=== PATIENT | female | born 1935 | race Caucasian/White ===

== ENCOUNTER 2016-06-09 09:24 | Inpatient (IN) | payer OTHER ==
[~2016-06-09] VITALS: Ht 149.9 cm; Wt 61.2 kg
[~2016-06-09 09:24] MED LIST: ALBUTEROL0.09 MG/A1 INH; ALPH-E-MIXED-4400 IU PO; ASPIR 8181 MG PO; CALTRATE 600 +1 TAB PO; FLAX OIL1000 MG PO; LINSEED OIL 1 ML1 ML PO; NORVASC 5MG TAB5 MG PO; OMEGA-3 1450725 MG PO; PREDNISONE20 M1 PO; PREPARATION H TOP; SYMBICORT 160/41 PUF INH; SYMBICORT 80/4.1 PUF INH; VITAMIN C500 M3 PO; ZANTAC 150MG150 MG PO; ZITHROMAX250 M2 PO
--- NOTE | 2016-06-09 09:41 | NUR ---
PT HAD EKG AND BLOOD WORK IN [place] BY [facility] NORM THACKER CURRENTLY EVALUATING PATIENT IN [place] AND THEN PT WILL MOVE TO [facility] RM 1.
--- NOTE | 2016-06-09 09:43 | ED CARDIAC/CP/PALPITATIONS ---
History of Present Illness General Chief Complaint: General Adult Stated Complaint: SOB,CHEST PAIN Source: patient, family, old records Exam Limitations: no limitations Vital Signs & Intake/Output Vital Signs & Intake/Output Vital Signs Date Time Temp Pulse Resp B/P Pulse O2 O2 Flow FiO2 Ox Delivery Rate 06/09 1511 98.4 79 16 159/76 100 Room Air 06/09 1506 98.4 85 16 159/76 100 Room Air 06/09 1408 70 170/82 03/ 1251 70 16 170/82 99 Room Air 06/09 1114 96.0 76 20 178/78 96 Room Air 06/09 1007 Room Air Room Air 06/09 1000 96.2 69 20 166/84 94 Room Air 06/09 0934 95.8 77 22 172/88 96 Room Air Allergies Coded Allergies: codeine (SOB 06/09/16) Uncoded Allergies: SEASONAL (UNKNOWN 10/08/15) Triage Note: SENT BY DR. MARTIN. C/O CHEST PAIN RADIATING TO BACK, WITH SOB X 10 DAYS. STATES SHE "PASSED OUT" PRIOR TO SXS, WHILE BEING TREATED FOR BRONCHITIS. PAIN IS WORSE ON INSPIRATION. Triage Nurses Notes Reviewed? yes Onset: Abrupt Duration: week(s): (FEW), intermittent Timing: recent history Quality/Severity: moderate, severe Location: central Radiation: no radiation Activities at Onset: none HPI: 80-year-old female comes into emergency room for further evaluation of multiple complaints. Patient reports that a couple weeks ago she was having these multiple episodes where she would pass out and lose consciousness completely. Patient reports that most of the time she would be exerting herself and would completely black out and wake up on the floor. Patient reports that she was feeling sick with a cough intermittently with some mucus production in the afternoons. Patient saw her primary care doctor who said that she had bronchitis and put her on prednisone. Patient reports that she does feel slightly better but has this chest pressure that won't go away. Denies any shortness of breath fever chills vomiting. The chest pressure has been there for about a week. Nothing seems to make it better or worse. Patient has not had any syncopal episodes in the past week. Denies any prior cardiac history. (KEDAR BAGLEY) Reconcile Medications Acetaminophen (Tylenol Extra Strength) 500 MG TABLET 2 TAB PO PRN PAIN ( Reported) Albuterol Sulfate (Proair Hfa) 90 MCG HFA.AER.AD 1-2 PUF INH Q4H PRN ASTHMA ( Reported) Amlodipine Besylate 5 MG TABLET 1 TAB PO QAM BP (Reported) Budesonide/Formoterol Fumarate (Symbicort 160-4.5 Mcg Inhaler) 160 MCG-4.5 MCG/ ACTUATION HFA.AER.AD 1 PUF INH BID ASTHMA (Reported) Calcium Carbonate/Vitamin D3 (Caltrate 600 + D Tablet) 600 MG-800 TABLET 1 TAB PO DAILY SUPPLEMENT (Reported) Ranitidine (Ranitidine HCl) 150 MG TABLET 1 TAB PO QPM HEARTBURN (Reported) Vitamin E Mixed (Vitamin E) 100 UNIT TABLET 1,000 UNITS PO DAILY SUPPLEMENT ( Reported) (SANDY BOYLE,HEIKE) Past History Travel History Traveled to [place] past 21 day No Medical History Any Pertinent Medical History? see below for history Neurological: migraine, SUBARACHNOID HEMORRHAGE EENT: cataracts, macular degeneration Cardiovascular: hypertension, hyperlipidemia Respiratory: asthma, bronchitis Gastrointestinal: diverticulitis, GERD, external HEMORRHOIDS per patient report. Hepatic: NONE Renal: NONE Musculoskeletal: osteoarthritis, L TORN MENISCUS Psychiatric: NONE Endocrine: NONE Blood Disorders: NONE Cancer(s): NONE VP HUMAN RESOURCES/Reproductive: uterine FIBROID and L BREAST CYSTS History of MRSA: No History of VRE: No History of CDIFF: No Surgical History Surgical History: appendectomy, tubal ligation, BREAST RECONSTRUCTIVE SX L MENISCUS REPAIR Psychosocial History Who do you live with Spouse Services at Home None What is your primary language Mongolian Tobacco Use: Quit >30 days ago ETOH Use: denies use Family History Family History, If Any: Relation not specified for: *No pertinent family history Hx Contributory? No (KEDAR BAGLEY) Review of Systems Review of Systems Constitutional: Reports: no symptoms. EENTM: Reports: no symptoms. Respiratory: Reports: see HPI. Cardiovascular: Reports: see HPI. GI: Reports: no symptoms. Genitourinary: Reports: no symptoms. Musculoskeletal: Reports: no symptoms. Skin: Reports: no symptoms. Neurological/Psychological: Reports: no symptoms. Hematologic/Endocrine: Reports: no symptoms. Immunologic/Allergic: Reports: no symptoms. All Other Systems: Reviewed and Negative (KEDAR BAGLEY) Physical Exam Physical Exam General Appearance: well developed/nourished, no apparent distress, alert Head: atraumatic, normal appearance Eyes: Bilateral: normal appearance, EOMI. Ears, Nose, Throat: normal pharynx, normal ENT inspection, hearing grossly normal Neck: normal inspection, full range of motion Respiratory: normal breath sounds, no respiratory distress Cardiovascular: regular rate/rhythm Back: normal inspection Extremities: normal inspection, normal range of motion, no edema Neurologic/Psych: awake, alert, oriented x 3, normal gait, normal mood/affect Skin: intact, normal color Core Measures ACS in differential dx? No Severe Sepsis Present: No Septic Shock Present: No (KEDAR BAGLEY) Progress Differential Diagnosis: AMI, aortic dissection, cholecystitis, costochondritis, hyperkalemia, hyperthyroid, hyperventilation, intracranial hemorrhage, musculoskeletal pain, pancreatitis, pericarditis, pneumonia, pneumothorax, pulmonary embolism, PUD/GERD, PVCs/PACs, rib fracture, sepsis, unstable angina, V-fib/V-Tach Plan of Care: Orders Procedure Date/time Status CBC WITHOUT DIFFERENTIAL 06/10 0600 Active BASIC ELECTROLYTES PLUS BUN&CR 06/10 0600 Active Heart Healthy Diet 06/09 L Complete Heart Healthy Diet 06/09 D Active TROPONIN LEVEL 06/09 2100 Active EKG 06/09 2100 Active TROPONIN LEVEL 06/09 1500 Complete EKG 06/09 1500 Active PHYSICIAN CONSULT 06/09 1433 Active RAPID VIRAL INFLUENZA A 06/09 1427 Complete LOWER RESPIRATORY CULTURE 06/09 1426 Active TRC EVALUATION (GEN) 06/09 1414 Active Code Status 06/09 1335 Active Pathway - chart 06/09 1301 Active House Staff 06/[address] in observation 06/09 1231 Active Vital Signs 06/09 1231 Active Code Status 06/09 1231 Complete Patient Data 06/09 1229 Active Intake & Output 06/09 1137 Active Telemetry/Collaborating Supervising Physician 06/09 0943 Active THYROID STIMULATING HORMONE 06/09 0940 Complete TROPONIN LEVEL 06/09 0936 Complete COMPREHENSIVE METABOLIC PANEL 06/09 0936 Complete CBC WITHOUT DIFFERENTIAL 06/09 0936 Complete EKG 06/09 0926 Active Lab Add-on Test 06/09 UNK Active VTE Mechanical Prophylaxis 06/09 UNK Active Vital Signs 06/09 UNK Active MISTAKE 06/09 UNK Active ECHOCARDIOGRAM 06/09 UNK Active Current Medications Sig/Ani Start time Last Medication Dose Stop Time Status Admin Vitamin E 100 IU DAILY 06/09 1331 AC (Vitamin E) Budesonide/ 1 PUF BID 06/09 1330 AC Formoterol Fumarate (Symbicort) Acetaminophen 650 MG Q6 PRN 06/09 1300 AC (Tylenol) Acetaminophen 1,000 MG Q6P PRN 06/09 1300 AC (Ofirmev) Laboratory Tests 06/09/16 1505: Troponin I < 0.01 06/09/16 1301: Troponin I Cancelled 06/09/16 0940: Anion Gap 6, Estimated GFR > 60, BUN/Creatinine Ratio 25.6 H, Glucose 98, Calcium 10.1, Total Bilirubin 0.6, AST 18, ALT 22, Alkaline Phosphatase 112, Troponin I < 0.01, Total Protein 6.5, Albumin 3.6, Globulin 2.9, Albumin/ Globulin Ratio 1.2, TSH 1.060, CBC w Diff NO MAN DIFF REQ, RBC 4.15 L, MCV 92.2 , MCH 31.3 H, RDW 14.6 H, MPV 7.2 L, Gran % 65.5, Lymphocytes % 23.1, Monocytes % 9.9 H, Eosinophils % 1.3, Basophils % 0.2, Absolute Granulocytes 4.5, Absolute Lymphocytes 1.6, Absolute Monocytes 0.7 H, Absolute Eosinophils 0.1, Absolute Basophils 0, PUBS MCHC 34.0 Microbiology 06/09 1445 NASOPHARYN: Influenza Virus A & B Rapid Smear - COMP 06/09 142 LOWER RESP: Respiratory Culture - COLB 06/09 1425 LOWER RESP: Gram Stain - COLB Diagnostic Imaging: Viewed by Me: Radiology Read. Discussed w/RAD: Radiology Read. Radiology Impression: SERVICE DATE: 06/09/16 EXAM TYPE: RAD - XRY-CHEST XRAY, PA AND LATERAL EXAMINATION: XR CHEST CLINICAL INFORMATION: Pain. Rule out trauma. COMPARISON: Chest radiograph dated 11/07/2015. Rib radiographs dated . TECHNIQUE: 2 views of the chest were obtained. FINDINGS: The cardiac silhouette is normal in size and configuration. There is uncoiling of the thoracic aorta. There is atherosclerotic disease. The lungs are clear. No pneumothorax or pleural effusion. Exaggerated kyphotic curvature. Degenerative changes of the thoracic spine. No displaced rib fracture. Degenerative changes of the shoulders. IMPRESSION: No pneumonia, pneumothorax or pleural effusion. No displaced rib fracture. DICTATED BY: MILES UMANZOR MD DATE/TIME DICTATED:1038 Initial ED EKG: normal intervals, normal p-waves, normal sinus rhythm, rate (77) , nonspecific ST T wave chg (KEDAR BAGLEY) Departure Departure Disposition: STILL A PATIENT Condition: Stable Clinical Impression Primary Impression: Syncope Secondary Impressions: Chest pain Referrals: MARIO BOYLE,GWEN Sommers (PCP/Family) Departure Forms: Customer Survey General Discharge Information Observation Note Spoke With: RUSTY REGAN MD Physician Advisor Notified: MUSA BOYLE,ELIDA [facility] Patient In: Non-ED OBS Care Area Rationale for Observation: My rational for observation is as follows . Patient will require cardiac telemetry. Serial EKGs. Serial troponins. Echocardiogram. Possibly stress test. Cardiac consultation. CONSULT plavic. (KEDAR BAGLEY) PA/COPYRIGHT MANAGER Co-Sign Statement Statement: ED Attending supervision documentation- [X] I saw and evaluated the patient. I have also reviewed all the pertinent lab results and diagnostic results. I agree with the findings and the plan of care as documented in the PA's/COPYRIGHT MANAGER's documentation. [X] I have reviewed the ED Record and agree with the PA's/COPYRIGHT MANAGER's documentation. [] Additions or exceptions (if any) to the PAs/COPYRIGHT MANAGER's note and plan are summarized below: [] (SANDY BOYLE,HEIKE) Critical Care Note Critical Care Note Critical Care Time: non-applicable (KEDAR BAGLEY)
[2016-06-09 09:48] LABS: ABSOLUTE BASOPHIL COUNT 0 /CUMM (0.0-0.2); ABSOLUTE EOSINOPHIL COUNT 0.1 /CUMM (0.0-0.7); ABSOLUTE GRANULOCYTE CT 4.5 /CUMM (1.4-6.5); ABSOLUTE LYMPH COUNT 1.6 /CUMM (1.2-3.4); ABSOLUTE MONOCYTE COUNT 0.7 /CUMM (0.10-0.60); BASOPHIL % 0.2 % (0.0-2.0); EOSINOPHIL % 1.3 % (0-5); GRANULOCYTE % 65.5 % (42.2-75.2); HEMATOCRIT 38.3 % (37-47); MEAN CORPUSCULAR HGB 31.3 PG (27.0-31.0); MEAN CORPUSCULAR VOLUME 92.2 FL (81.0-99.0); MEAN PLATELET VOLUME 7.2 FL (7.4-10.4); PLATELET COUNT 272 /CUMM (130-400); RBC DISTRIBUTION WIDTH 14.6 % (11.5-14.5); RED BLOOD CELL CT 4.15 /CUMM (4.20-5.40); WHITE BLOOD CELL COUNT 6.9 /CUMM (4.8-10.8)
--- NOTE | 2016-06-09 10:03 | NUR ---
PT STATES IT STARTED 2 WEEKS AGO WITH PRODUCTIVE COUGH (ONLY IN THE EVENINGS) WITH YELLOW PHLEGM AND HAVING MULTIPLE SYNCOPAL EPISODES IN THE SAME NIGHT. STATES SHE THINKS SHE INJURED HERSELF DURING THE FALLS SHE HAS HAD CHEST PAIN SINCE THEN WHICH HAS BEEN WORSE IN THE LAST WEEK AND HAS CONTINUED TO WORSEN SINCE. WAS DIAGNOSED WITH BRONCHITIS 05/30. COMPLETED ABX WEDNESDAY AND PREDNISONE WEDNESDAY. NOW FEELS WORSENING.
--- NOTE | 2016-06-09 10:05 | NUR ---
TAKEN TO XRAY AT THIS TIME.
--- NOTE | 2016-06-09 10:45 | RADIOLOGY REPORT ---
EXAMINATION: XR CHEST CLINICAL INFORMATION: Pain. Rule out trauma. COMPARISON: Chest radiograph dated 11/07/2015. Rib radiographs dated 04/18/2016. TECHNIQUE: 2 views of the chest were obtained. FINDINGS: The cardiac silhouette is normal in size and configuration. There is uncoiling of the thoracic aorta. There is atherosclerotic disease. The lungs are clear. No pneumothorax or pleural effusion. Exaggerated kyphotic curvature. Degenerative changes of the thoracic spine. No displaced rib fracture. Degenerative changes of the shoulders. IMPRESSION: No pneumonia, pneumothorax or pleural effusion. No displaced rib fracture.
--- NOTE | 2016-06-09 11:58 | NUR ---
DR DELGADO AT BEDSIDE TO DISCUSS PLAN
[2016-06-09] MEDS ORDERED: SYMBICORT 16010.2 GM INH (12:31)
[2016-06-09] MEDS ORDERED: RANITIDINE HCL150 MG PO (12:31)
[2016-06-09] MEDS ORDERED: AMLODIPINE BESYL5 M1 PO (12:32)
[2016-06-09] MEDS ORDERED: PROAIR HFA8.5 GM INH (12:32)
[2016-06-09] MEDS ORDERED: VITAMIN E100 UNI2 PO (12:33)
[2016-06-09] MEDS ORDERED: TYLENOL EXTRA500 M2 PO (12:33)
[2016-06-09] MEDS ORDERED: CALTRATE 600 +1 EACH PO (12:34)
--- NOTE | 2016-06-09 12:35 | History & Physical ---
TULIO DE LA ROSA 06/09/16 1234: General Information and HPI MD Statement: I have seen and personally examined JOEL RUTLEDGE and documented this H&P. The patient is a 80 year old F who presented with a patient stated chief complaint of [syncope]. Source of Information: patient, family Exam Limitations: no limitations History of Present Illness: 80-year-old female with a past medical history of subarachnoid hemorrhage, hypertension, hyperlipidemia, aspirin, GERD, diverticulitis, osteoarthritis presented to the ED with chief complaint of chest pain and shortness of breath as well as episodes of syncope that happened a week and a half ago. According to the patient she was in her usual state of health up until 2 weeks when she developed upper respiratory tract infection. States that she was bringing up any coughing a lot especially during the afternoon as well as, mild. About 1-1/2 week ago, she woke up at around 1 AM to use the restroom, felt dizzy and passed out. Her stated her to the bed. She said a few minutes later she again had to use the restroom and at that time similar event occurred while she fell down on the floor. She denies any chest pain, palpitations, any prodromal symptoms prior to the event. She denies hitting her head but does admit to losing her consciousness and doesn't really recall the events. There is no history of seizure like activity. She does however state that she was barely eating and drinking prior to when these episodes occur. She saw her allergy doctor the following day and was started on Z-Prosper as well as prednisone for bronchitis. Of note her chest pain does alleviate with Tyelnol, and when she lies flat. No hsitory of PND, orthopnea. Allergies/Medications Allergies: Coded Allergies: codeine (SOB 06/09/16) Uncoded Allergies: SEASONAL (UNKNOWN 10/08/15) Home Med list Acetaminophen (Tylenol Extra Strength) 500 MG TABLET 2 TAB PO PRN PAIN ( Reported) Albuterol Sulfate (Proair Hfa) 90 MCG HFA.AER.AD 1-2 PUF INH Q4H PRN ASTHMA ( Reported) Amlodipine Besylate 5 MG TABLET 1 TAB PO QAM BP (Reported) Budesonide/Formoterol Fumarate (Symbicort 160-4.5 Mcg Inhaler) 160 MCG-4.5 MCG/ ACTUATION HFA.AER.AD 1 PUF INH BID ASTHMA (Reported) Calcium Carbonate/Vitamin D3 (Caltrate 600 + D Tablet) 600 MG-800 TABLET 1 TAB PO DAILY SUPPLEMENT (Reported) Ranitidine (Ranitidine HCl) 150 MG TABLET 1 TAB PO QPM HEARTBURN (Reported) Vitamin E Mixed (Vitamin E) 100 UNIT TABLET 1,000 UNITS PO DAILY SUPPLEMENT ( Reported) Compliance With Home Meds: GOOD Past History Travel History Traveled to [place] past 21 day No Medical History Neurological: migraine, SUBARACHNOID HEMORRHAGE EENT: cataracts, macular degeneration Cardiovascular: hypertension, hyperlipidemia Respiratory: asthma, bronchitis Gastrointestinal: diverticulitis, GERD, external HEMORRHOIDS per patient report. Hepatic: NONE Renal: NONE Musculoskeletal: osteoarthritis, L TORN MENISCUS Psychiatric: NONE Endocrine: NONE Blood Disorders: NONE Cancer(s): NONE NET LEAD DEVELOPER/Reproductive: uterine FIBROID and L BREAST CYSTS History of MRSA: No History of VRE: No History of CDIFF: No Surgical History Surgical History: appendectomy, tubal ligation, BREAST RECONSTRUCTIVE SX L MENISCUS REPAIR Past Family/Social History Family History Relations & Conditions if any MOTHER Early CAD FH: breast cancer FATHER FH: CAD (coronary artery disease) Psychosocial History Who Do You Live With? spouse Services at Home: None Primary Language: Luxembourgish Smoking Status: Former Smoker (quit 30 years) ETOH Use: denies use Illicit Drug Use: denies illicit drug use Functional Ability ADLs Independent: dressing, eating, toileting, bathing. Ambulation: independent IADLs Independent: shopping, housework, finances, food prep, telephone, transportation , medication admin. Review of Systems Review of Systems Constitutional: Denies: chills, diaphoresis, fever, weakness. EENTM: Denies: visual changes. Cardiovascular: Reports: chest pain, syncope. Denies: orthopena, palpitations, peripheral edema. Respiratory: Reports: cough, short of breath, sputum production. Denies: hemoptysis, orthopnea, wheezing. GI: Reports: abdominal pain. Denies: constipation, diarrhea, nausea, vomiting. Genitourinary: Reports: no symptoms. Musculoskeletal: Reports: no symptoms. Neurological/Psychological: Denies: headache, numbness, tingling, tremors, tonic-clonic seizures. Exam & Diagnostic Data Last 24 Hrs of Vital Signs/I&O Vital Signs Date Time Temp Pulse Resp B/P Pulse O2 O2 Flow FiO2 Ox Delivery Rate 06/09 1408 70 170/82 06/09 1251 70 16 170/82 99 Room Air 06/09 1114 96.0 76 20 178/78 96 Room Air 06/09 1007 Room Air Room Air 06/09 1000 96.2 69 20 166/84 94 Room Air 06/09 0934 95.8 77 22 172/88 96 Room Air Intake & Output 06/09 1600 06/09 0800 06/09 0000 Intake Total Output Total Balance Patient 135 lb Weight Physical Exam General Appearance Alert, Oriented X3, Cooperative, No Acute Distress HEENT Atraumatic, PERRLA, EOMI, DRY MUCOUS MEMBRANES Neck Supple, No JVD, No thryomegaly, +2 Carotid Pulse wo Bruit, No LAD Cardiovascular Regular Rate, Normal S1, Normal S2, GRADE III/ holosystolic murmer heard best at RSB Lungs Clear to Auscultation, Normal Air Movement Abdomen Normal Bowel Sounds, Soft, No Tenderness Neurological Normal Speech, Strength at 5/5 X4 Ext, Normal Tone, Sensation Intact, Cranial Nerves 3-12 NL, Reflexes 2+ Extremities No Clubbing, No Cyanosis, Normal Pulses, No Tenderness/Swelling, 1+ b/l lower extremity edema Last 24 Hrs of Labs/Rafal: Laboratory Tests 06/09/16 1301: Troponin I Cancelled 06/09/16 0940: Anion Gap 6, Estimated GFR > 60, BUN/Creatinine Ratio 25.6 H, Glucose 98, Calcium 10.1, Total Bilirubin 0.6, AST 18, ALT 22, Alkaline Phosphatase 112, Troponin I < 0.01, Total Protein 6.5, Albumin 3.6, Globulin 2.9, Albumin/ Globulin Ratio 1.2, TSH 1.060, CBC w Diff NO MAN DIFF REQ, RBC 4.15 L, MCV 92.2 , MCH 31.3 H, RDW 14.6 H, MPV 7.2 L, Gran % 65.5, Lymphocytes % 23.1, Monocytes % 9.9 H, Eosinophils % 1.3, Basophils % 0.2, Absolute Granulocytes 4.5, Absolute Lymphocytes 1.6, Absolute Monocytes 0.7 H, Absolute Eosinophils 0.1, Absolute Basophils 0, PUBS MCHC 34.0 Microbiology 06/09 1427 NASOPHARYN: Influenza Virus A & B Rapid Smear - ORD 06/09 1426 LOWER RESP: Respiratory Culture - ORD 06/09 1426 LOWER RESP: Gram Stain - ORD Diagnostic Data EKG Results normal sinus rhythm, questionable left axis deviation, poor R-wave progression and a heart rate of 77. CXR Results Chest x-ray revealed no evidence of pneumonia, pneumothorax or pleural effusion. Assessment/Plan Assessment: 80-year-old female with a past medical history of subarachnoid hemorrhage, hypertension, hyperlipidemia, aspirin, GERD, diverticulitis, osteoarthritis presented to the ED with chief complaint of chest pain and shortness of breath as well as episodes of syncope that happened a week and a half ago. According to the patient she was in her usual state of health up until 2 weeks when she developed upper respiratory tract infection. States that she was bringing up any coughing a lot especially during the afternoon as well as, mild. About 1-1/2 week ago, she woke up at around 1 AM to use the restroom, felt dizzy and passed out. Her stated her to the bed. She said a few minutes later she again had to use the restroom and at that time similar event occurred while she fell down on the floor. She denies any chest pain, palpitations, any prodromal symptoms prior to the event. She denies hitting her head but does admit to losing her consciousness and doesn't really recall the events. There is no history of seizure like activity. She does however state that she was barely eating and drinking prior to when these episodes occur. She saw her allergy doctor the following day and was started on Z-Prosper as well as prednisone for bronchitis. Up until about a week ago she's also started to experience chest pain that was worse every time she take a deep breath, is intermittent. She grades the pain as an 8 out of 10 minutes at it worse and is alleviated by taking Tylenol. She also admits to a mild shortness of breath happening for almost 10 days now. Vitals at the time of admission blood pressure is 178/78, respiratory rate 29, pulse 76, afebrile saturating 96% on room air. Physical exam revealed that she is alert and oriented 3, and in no acute distress sitting comfortably in bed. HEENT revealed PERRLA, dry mucous membranes. Examination of the neck did not reveal any elevated JVD, no cervical lymphadenopathy. Chest was clear to auscultation bilaterally. Cardiovascular exam reveals normal S1, S2, grade 3 x 6 holosystolic murmur heard best at the right sternal border. Abdominal exam was unremarkable with normal bowel sounds in all 4 quadrants, abdomen soft, nontender, nondistended. Examination of the lower extremities revealed 1+ edema bilaterally. Labs pertinent for an H&H of 13.0/38.3, MCV of 92.2 and a platelet count of 272, 000. Serum chemistries revealed a sodium of 139, potassium of 4.1, bicarbonate 31, anion gap 6, BUN 23 and a creatinine of 0.9. LFTs are unremarkable with an AST/ALT of 18/22, total bili of 0.6 and an alkaline phosphatase of 112. First set of troponin negative at less than 0.01. Last echocardiogram in our system is from 2007 which revealed normal left ventricular ejection fraction, mild mitral regurgitation, mild tricuspid regurgitation, trace pulmonic valvular regurgitation and trace to mild aortic regurgitation. Chest x-ray revealed no evidence of pneumonia, pneumothorax or pleural effusion. EKG revealed normal sinus rhythm, questionable left axis deviation, poor R-wave progression and a heart rate of 77. Assessment and plan Admit patient to telemetry for observation #Atypical chest pain Differentials at this point include pericarditis versus pleuritis versus ACS Troponin and EKG at 3 PM and 9 PM to rule out ACS Echocardiogram to further evaluate for any valvular lesions and or pericarditis Cardiology consult with Dr. Lomas Follow-up recommendations Check LRC, rapid influenza. #Syncope Most likely secondary to dehydration versus vasovagal versus secondary to cardiac arrhythmias versus aortic stenosis? unllikely Tej HERNANDEZ is 0 Monitor on telemetry for 24 hours to rule out any arrhythmias F/U Echo Check orthostatic vitals #Hypertension Continue on amlodipine 5 mg daily #GERD Continue on Protonix 40 mg daily Diet Heart healthy DVT prophylaxis Heparin 5000 international units 3 times a day subcutaneous CODE STATUS Full code As Ranked By This Provider Problem List: 1. Chest pain 2. Syncope Core Measures/Miscellaneous Acute Coronary Syndrome ACS Diagnosis: No Cerebrovascular Accident CVA/TIA Diagnosis: No Congestive Heart Failure CHF Diagnosis: No Venous Thromboembolism VTE Risk Factors: Age > 40 [facility] d/t: No contraindications No VTE Pharm Prophylaxis d/t: No contraindications VTE Diagnosis: No VTE Type: NONE VTE Confirmed by (Test): NONE Severe Sepsis Severe Sepsis Present: No Septic Shock Septic Shock Present: No Miscellaneous Documentation Attending Case Discussed With: RHIANNON BOYLE,JOSHUA Gan Primary Care Physician: GWEN MARTIN MD Patient sees these Specialists -Package Center Supervisor in [place] Level of Patient Care: Telemetry Consults Needed: Consulting Specialty: Cardiology Resident Review Statement Resident Statement: admitted by resident JOSHUA LOMAS MD 06/09/16 1447: Attending MD Review Statement Attending Statement Attending MD Statement: examined this patient, discuss w/resident/PA/SENIOR STORAGE ENGINEER, agreed w/resident/PA/SENIOR STORAGE ENGINEER, reviewed EMR data (avail), discussed with nursing, discussed with case mgmt, reviewed images Attending Assessment/Plan: 80-year-old female with past medical history of hyperreactive airway disease questionable asthma on a laba/steroid combination is here with syncope 2. There doesn't appear to be any obvious source of the syncope other than the fact that she has had poor by mouth intake, is weak and dehydrated. She does have a murmur as well. She's had this cough with yellow phlegm and has been treated with a Z-Prosper and prednisone as an outpatient. At this point will bring her into telemetry to watch for the syncope closely, get an echocardiogram and cardiology eval she is requesting Dr. Galen Thornton's group. Will gently hydrate her for a liter, continue her Norvasc. Continue her inhalers. Check influenza and check sputum Gram stain and culture. Chest x-ray is completely negative, she is not hypoxemic or tachycardic and will closely follow up.
--- NOTE | 2016-06-09 12:50 | NUR ---
IV ESTABLISHED. PT REQUESTING FOOD. ASSISTED BACK TO STRETCHER AND EDUCATED ON FALL PRECAUTIONS DUE TO RECENT HX OF MULTIPLE SYNCOPAL EPISODES. DENIES DIZZINESS AT THIS TIME. DENIES CP.
--- NOTE | 2016-06-09 12:56 | NUR ---
PT CHANGED AND CLOTHES PLACED IN BAGS. LEXI RED SLIPPERS FOR HIGH FALL RISK IDENTIFICATION APPLIED. HEART HEALTHY FOOD TRAY ORDERED. PT AND FAMILY INFORMED OF ADMISSION PROCESS
--- NOTE | 2016-06-09 14:09 | NUR ---
MEDICATED WITH PRILOSEC, NORVASC AND HEPARIN PER eMAR AND EDUCATED ON USES. FOOD TRAY PROVIDED AND INFORMED WAITING PERFORMED REGARDING PENDING BED ASSIGNMENT
--- NOTE | 2016-06-09 14:32 | Admission Certification ---
Admission Certification Certification Statement - As attending physician, I certify that at the time of - admission, based on clinical presentation, severity of - symptoms, need for further diagnostic testing and - therapeutic interventions, and risk of adverse outcomes - without in-hospital treatment, in my clinical assessment, - this patient requires an acute hospital stay for a minimum - of two nights or longer. I have also considered psychsocial - factors such as support system, advanced age, financial - issues, cognitive issues, and failed out-patient treatments, - past re-admission history, safety of patient, and lack of - compliance as applicable. Specific rationale supporting this admission is: Syncope with fall and dehydration
--- NOTE | 2016-06-09 14:55 | NUR ---
FLU SWAB OBTAINED AND SENT TO LAB. INFORMED OF NO ROOMS IN TELEMETRY AT THIS TIME AND PT WILL BE PROVIDED A HOSPITAL BED. ALSO INFORMED OF PLAN FOR REPEAT TROPONIN AND EKG AT THIS TIME. PHARMACY CALLED FOR MEDS
--- NOTE | 2016-06-09 15:09 | NUR ---
PT TOOK VIT E THIS AM WELL SYMBICORT, REQUESTING TO WAIT UNTIL BEDTIME DOSE. NS IVF GTT AT 75ML/HR PER ORDER. REPEAT TROPONIN AND EKG COMPLETED AT THIS TIME
[2016-06-09 15:11] VITALS: BP 159/76
--- NOTE | 2016-06-09 15:54 | NUR ---
DIETARY CALLED FOR DIFFERENT HEART HEALTHY TRAY AND A MENU FOR PT FUTURE ORDERS.
--- NOTE | 2016-06-09 16:49 | NUR ---
IV SITE APPEARS INFILTRATED WITH COOL SWELLING PROXIMAL TO AC WHERE CATH IS. DC'ED IMMEDIATELY AND ICE PACK APPLIED. NEW IV ESTABLISHED TO LH AND NS CONT. DINNER TRAY PROVIDED
--- NOTE | 2016-06-09 20:42 | NUR ---
Emergency Dept UC Admit Note: To be admitted to [facility] by DR JURADO with SYNCOPE as the diagnosis, to TELE/OBS location. Nursing Management Technician and admitting notified 06/09/16 at 1235 PT WILL GO TO ROOM 180-1
--- NOTE | 2016-06-09 20:43 | NUR ---
ROOM IS NOT READY YET
[2016-06-09 20:49] VITALS: BP 142/82
--- NOTE | 2016-06-09 21:05 | NUR ---
REPEAT TROP DRAWN AND SENT BY THIS MST.
--- NOTE | 2016-06-09 21:10 | NUR ---
REPORT GIVEN TO RECEIVING RN AND DISTRIBUTION CALLED. TELE RESIDENT PAGED AT X203 TO BE INFORMED THAT EKG AND TROPONIN COMPLETED. PT REMAINS NSR ON CM RATE 80'S. SLIGHT COUGH REMAINS, NOT EXPECTORATING ANY SPUTUM FOR ANALYSIS. VSS. INFORMED OF PLAN FOR TRANSPORT UPSTAIRS TO ROOM.
--- NOTE | 2016-06-09 21:29 | NUR ---
PT TRANSPORTED TO FLOOR
[2016-06-09 21:45] VITALS: BP 162/86
--- NOTE | 2016-06-10 01:05 | Event Note ---
Event Note Event Note: Rapid response was called around 12:30AM with subsequent code 3 called moments later. Upon arrival to the patient's room patient was seen to be lying flat in bed with her eyes open breathing at a normal pace appearing scared/confused. Collateral information obtained from nursing staff states that patient was sitting in her chair at bedside when she stated that she "didn't feel right". Blood pressure was reportedly assessed but cannot be auscultated. The chair was positioned next to the bed so that patient would be able to stand pivot and transfer with minimal effort in an attempt to place the patient in bed. Patient reportedly stood up and "turned blue" and collapsed. She was caught by the nurse present whom was able to place the patient in bed without injury. She was apparently seen to have agonal breaths/apnea with a weak and thready carotid pulse for which the rapid response/code 3 was immediately called. Patient was interviewed and she does not recall losing consciousness and otherwise states that she feels a little "funny". She appears dazed and confused but in no acute distress. She reports feeling dizzy/lightheaded but otherwise denies any blurred/double vision, chest pain, palpitations, shortness of breath, nausea, numbness/tingling, weakness. She did not sustain any musculoskeletal injuries or lose bowel/bladder control. She was not witnessed to have any seizure activity. Vital signs upon evaluation: Temp 96.7, HR 80, RR 16, BP 142/82, 95% on room air Physical exam -Gen: Well-developed, well-nourished elderly anxious woman appearing mildly confused but in no acute distress -HEENT: NCAT, PERRLA, EOMI, anicteric sclera, moist mucous membranes -Neck: Supple, no JVD, no carotid bruit -CVS: S1, S2 without murmurs gallops or rubs, regular rate and rhythm -Respiratory: Clear to auscultation bilaterally -GI: Soft, nontender, nondistended, bowel sounds present -Neuro: Awake and alert, oriented to person/place/time, cranial nerves intact diffusely, sensation intact, coordination intact, speech intact, strength 5/5 in all 4 extremities -Extremities: Normal pulses, no cyanosis/clubbing/edema EKG was unchanged. Complete blood count, serum chemistries, magnesium, and troponin drawn at this time were within normal limits. Given her admitting history of present illness of syncope with subjective/objective evaluation suggestive of a further syncopal events is possible that patient Suffered a recurrence of her underlying disease that is currently eating evaluated. Orthostats cannot be assessed as patient did not want to sit up/ stand for fear of another event. Patient was counseled regarding these findings and instructed to attempt to get some rest and to please let nursing/housestaff no if she develops any other symptoms. No further evaluations in regards to this event are pending that will require follow-up.
[2016-06-10 01:19] LABS: ABSOLUTE BASOPHIL COUNT 0 /CUMM (0.0-0.2); ABSOLUTE EOSINOPHIL COUNT 0.2 /CUMM (0.0-0.7); ABSOLUTE GRANULOCYTE CT 5.4 /CUMM (1.4-6.5); ABSOLUTE LYMPH COUNT 2.8 /CUMM (1.2-3.4); ABSOLUTE MONOCYTE COUNT 0.8 /CUMM (0.10-0.60); BASOPHIL % 0.4 % (0.0-2.0); EOSINOPHIL % 1.8 % (0-5); GRANULOCYTE % 58.6 % (42.2-75.2); HEMATOCRIT 36.9 % (37-47); MEAN CORPUSCULAR HGB 31.1 PG (27.0-31.0); MEAN CORPUSCULAR HGB CONC 33.8 G/DL (33.0-37.0); MEAN CORPUSCULAR VOLUME 92.1 FL (81.0-99.0); MEAN PLATELET VOLUME 7.6 FL (7.4-10.4); PLATELET COUNT 268 /CUMM (130-400); RBC DISTRIBUTION WIDTH 14.8 % (11.5-14.5); RED BLOOD CELL CT 4.01 /CUMM (4.20-5.40); WHITE BLOOD CELL COUNT 9.2 /CUMM (4.8-10.8)
--- NOTE | 2016-06-10 03:46 | NUR ---
NURSING NOTE, LATE ENTRY: 0020 PT CALLED THIS RN INTO ROOM FOR ASSISTANCE BACK TO BED FROM CHAIR. AT THIS TIME PT COMPLAINING OF "NOT FEELING WELL", UNABLE TO GIVE SPECIFIC SYMPTOMS. PT DID STATE THAT SHE FELT DIZZY. AT THIS TIME, BP WAS ATTEMEPTED BY THIS RN, DURING ATTEMPT TO OBTAIN BP PT BECAME UNRESPONSIVE. RAPID RESPONSE CALLED AT 0031. PT PLACED BACK INTO BED, PT WAS APENIC, FAINT CAROTID PULSE PALPATED BY THIS RN. PT WAS INCONTINENT OF URINE AT THIS TIME. UPON ARRIVAL OF RAPID RESPONSE TEAM PT AWOKE ON HER OWN AND WAS UNABLE TO RECALL ANYTHING AFTER STATING SHE DID NOT FEEL WELL. BP AT THIS TIME 132/68, HR 68, O2 SAT 85% ON RA, FINGER STICK GLUCOSE 98. PT PLACED ON 2LNC, O2 INCREASED TO 94%, EKG AND BLOOD WORK OBTAINED. AWAITING FURTHER ORDERS, WILL CONTINUE TO MONITOR.
[2016-06-10 08:08] VITALS: BP 150/78
--- NOTE | 2016-06-10 12:25 | Cons- Cardiology ---
General Information and HPI Consulting Request Date of Consult: 06/10/16 Requested By: JOSHUA JURADO MD Reason for Consult: Syncope Source of Information: patient, family, old records Exam Limitations: no limitations History of Present Illness: The patient is a 80-year-old woman with a past medical history of eye pretension , hyperlipidemia, gastroesophageal reflux disease and arachnoid hemorrhage. The patient presents with symptoms of chest discomfort as well as increasing dyspnea and episodes of syncope occurring over the past several weeks; however, have as well occurred in the past. The patient states she developed an upper respiratory tract infection approximately 2 weeks ago and has had an increasing cough frequency. Her first episode of syncope that had occurred recently was approximately one half weeks ago when she arose from bed due to the bathroom. There was a prodrome of lightheadedness with no concurrent palpitations nor chest discomfort. She collapsed to the floor and was assisted by her . There was no clear recall of the event, and she proceeded to the bathroom; however, had a second syncopal episode I'll emulating back to her bed. The patient states she had felt dehydrated at the time which have been similar to prior episodes of syncope that occurred with respiratory infections. She was initiated on treatment for bronchitis with azithromycin as well as prednisone. On the a.m. of 06/10/2016, the patient had been sitting in a chair when she felt the sudden onset of lightheadedness, syncopal to the sensation she felt while walking to the bathroom. There was no concurrent palpitations chest pains nor dyspnea. She was noted to have a syncopal episode by the staff nurse sitting her chair. A blood pressure could not be auscultated at that time nor was there a clear pulse felt. Telemetry demonstrated paroxysm of bradycardia with heart rates of mid 40s. No concurrent nausea was noted either. No seizure activity nor postictal state was noted. The patient has subsequently ruled out for myocardial infarction by troponin isoenzymes. Orthostatic blood pressures checked this a.m. were negative. Allergies/Medications Allergies: Coded Allergies: codeine (SOB 06/09/16) Uncoded Allergies: SEASONAL (UNKNOWN 10/08/15) Home Med List: Acetaminophen (Tylenol Extra Strength) 500 MG TABLET 2 TAB PO PRN PAIN ( Reported) Albuterol Sulfate (Proair Hfa) 90 MCG HFA.AER.AD 1-2 PUF INH Q4H PRN ASTHMA ( Reported) Amlodipine Besylate 5 MG TABLET 1 TAB PO QAM BP (Reported) Budesonide/Formoterol Fumarate (Symbicort 160-4.5 Mcg Inhaler) 160 MCG-4.5 MCG/ ACTUATION HFA.AER.AD 1 PUF INH BID ASTHMA (Reported) Calcium Carbonate/Vitamin D3 (Caltrate 600 + D Tablet) 600 MG-800 TABLET 1 TAB PO DAILY SUPPLEMENT (Reported) Ranitidine (Ranitidine HCl) 150 MG TABLET 1 TAB PO QPM HEARTBURN (Reported) Vitamin E Mixed (Vitamin E) 100 UNIT TABLET 1,000 UNITS PO DAILY SUPPLEMENT ( Reported) Current Medications: Current Medications Sig/Ani Start time Last Medication Dose Route Stop Time Status Admin Acetaminophen 650 MG Q6 PRN 06/09 1300 AC PO Acetaminophen 1,000 MG Q6P PRN 06/09 1300 AC IV Amlodipine Besylate 0 .STK-MED ONE 06/09 1359 DC PO Amlodipine Besylate 5 MG QAM 06/09 1330 AC 06/10 PO 1033 Budesonide/ 1 PUF BID 06/09 1330 AC 08 Formoterol Fumarate INH 1033 Heparin Sodium 5,000 UNIT Q8 06/09 1400 AC 06/10 (Porcine) SC 1034 Heparin Sodium 0 .STK-MED ONE 06/09 1358 DC (Porcine) .ROUTE Omeprazole 40 MG 1700 06/10 1700 AC PO Omeprazole 0 .STK-MED ONE 06/09 1359 DC PO Omeprazole 40 MG DAILY AC 06/09 1331 DC 06/09 PO 1408 Ondansetron HCl 4 MG ONCE ONE 06/10 0115 DC 06/10 IV 06/10 0116 0133 Sodium Chloride 1,000 ML Q13H 06/09 1430 DC 03/ IV 06/10 0329 1507 Vitamin E 100 IU DAILY 06/09 1331 AC 06/10 PO 1033 Review of Systems Review of Systems: The review of systems is negative for chest pains, palpitations nor lightheadedness, with the exception of syncope as above The remainder of the 14 point review of systems is noncontributory with the exception of above. Past History Travel History Traveled to [place] past 21 day No Medical History Blood Transfusion Hx: No Neurological: migraine, SUBARACHNOID HEMORRHAGE S/P FALL AND HEADSTRIKE EENT: cataracts, macular degeneration Cardiovascular: hypertension, hyperlipidemia Respiratory: asthma, bronchitis Gastrointestinal: diverticulitis, GERD, external HEMORRHOIDS per patient report. 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 Home Who Do You Live With? spouse Services at Home: None Primary Language: Wolof Smoking Status: Former Smoker (quit 30 years) ETOH Use: denies use Illicit Drug Use: denies illicit drug use Functional Ability ADLs Independent: dressing, eating, toileting, bathing. Ambulation: independent IADLs Independent: shopping, housework, finances, food prep, telephone, transportation , medication admin. Exam & Diagnostic Data Vital Signs and I&O Vital Signs Date Time Temp Pulse Resp B/P Pulse O2 O2 Flow FiO2 Ox Delivery Rate 06/10 1033 65 150/78 06/10 0808 98.3 65 20 150/78 97 Nasal 2.0L Cannula 06/10 0036 93 Nasal 2.0L Cannula 06/09 2145 98.5 92 20 162/86 98 Room Air / 2049 96.7 79 16 142/82 95 Room Air / 2048 96.7 80 16 142/82 95 Room Air / 1511 98.4 79 16 159/76 100 Room Air / 1506 98.4 85 16 159/76 100 Room Air / 1408 70 170/82 03/07 1251 70 16 170/82 99 Room Air Intake & Output 06/10 1600 06/10 0800 /08 0000 06/09 1600 06/09 0800 06/09 0000 Intake Total 900 850 Output Total 400 300 Balance 500 850 -300 Intake, IV 650 500 Intake, Oral 250 350 Number 0 0 Bowel Movements Output, Urine 400 300 Patient 135 lb Weight Physical Exam: General: Nontoxic, no apparent distress. HEENT: Sclera and conjunctiva within normal limits, without xanthelasmas. Neck: Carotids 2+ without bruits. Respiratory: Scattered rhonchi, air movement is good, without accessory respiratory muscle use. Heart: Regular rate and rhythm, 3/6 systolic murmur at left sternal border, 2/6 systolic crescendo decrescendo murmur at the right sternal border, without JVD. Abdomen: Soft, nontender, no masses, normoactive bowel sounds. Extremities: Without clubbing, cyanosis, without edema. Neuro: Nonfocal exam, strength, 5 out of 5 Skin: Within normal limits without lesions. Psych: Mood and affect: Normal Labs/Rafal Results: Laboratory Tests 06/10 06/10 06/10 06/09 0620 0045 0045 2053 Chemistry Sodium (137 - 145 mmol/L) 140 139 Cancelled Potassium (3.5 - 5.1 mmol/L) 4.9 3.7 Cancelled Chloride (98 - 107 mmol/L) 106 104 Cancelled Carbon Dioxide (22 - 30 mmol/L) 28 27 Cancelled Anion Gap (5 - 16) 6 8 Cancelled BUN (7 - 17 mg/dL) 16 17 Cancelled Creatinine (0.5 - 1.0 mg/dL) 0.9 1.0 Cancelled Estimated GFR (>60 ml/min) > 60 54 L BUN/Creatinine Ratio (7 - 25 %) 17.8 17.0 Cancelled Magnesium (1.6 - 2.3 mg/dL) 1.9 Troponin I (< 0.11 ng/ml) < 0.01 < 0.01 < 0.01 Hematology CBC w Diff NO MAN DIFF REQ WBC (4.8 - 10.8 /CUMM) 9.2 RBC (4.20 - 5.40 /CUMM) 4.01 L Hgb (12.0 - 16.0 G/DL) 12.5 Hct (37 - 47 %) 36.9 L MCV (81.0 - 99.0 FL) 92.1 MCH (27.0 - 31.0 PG) 31.1 H RDW (11.5 - 14.5 %) 14.8 H Plt Count (130 - 400 /CUMM) 268 MPV (7.4 - 10.4 FL) 7.6 Gran % (42.2 - 75.2 %) 58.6 Lymphocytes % (20.5 - 51.1 %) 30.0 Monocytes % (1.7 - 9.3 %) 9.2 Eosinophils % (0 - 5 %) 1.8 Basophils % (0.0 - 2.0 %) 0.4 Absolute Granulocytes (1.4 - 6.5 /CUMM) 5.4 Absolute Lymphocytes (1.2 - 3.4 /CUMM) 2.8 Absolute Monocytes (0.10 - 0.60 /CUMM) 0.8 H Absolute Eosinophils (0.0 - 0.7 /CUMM) 0.2 Absolute Basophils (0.0 - 0.2 /CUMM) 0 PUBS MCHC (33.0 - 37.0 G/DL) 33.8 03/07 03/07 03/ 1505 1301 0940 Chemistry Sodium (137 - 145 mmol/L) 139 Potassium (3.5 - 5.1 mmol/L) 4.1 Chloride (98 - 107 mmol/L) 102 Carbon Dioxide (22 - 30 mmol/L) 31 H Anion Gap (5 - 16) 6 BUN (7 - 17 mg/dL) 23 H Creatinine (0.5 - 1.0 mg/dL) 0.9 Estimated GFR (>60 ml/min) > 60 BUN/Creatinine Ratio (7 - 25 %) 25.6 H Glucose (65 - 99 mg/dL) 98 Calcium (8.4 - 10.2 mg/dL) 10.1 Total Bilirubin (0.2 - 1.3 mg/dL) 0.6 AST (14 - 36 U/L) 18 ALT (9 - 52 U/L) 22 Alkaline Phosphatase (<127 U/L) 112 Troponin I (< 0.11 ng/ml) < 0.01 Cancelled < 0.01 Total Protein (6.3 - 8.2 g/dL) 6.5 Albumin (3.5 - 5.0 g/dL) 3.6 Globulin (1.9 - 4.2 gm/dL) 2.9 Albumin/Globulin Ratio (1.1 - 2.2 %) 1.2 TSH (0.270 - 4.200 uIU/mL) 1.060 Hematology CBC w Diff NO MAN DIFF REQ WBC (4.8 - 10.8 /CUMM) 6.9 RBC (4.20 - 5.40 /CUMM) 4.15 L Hgb (12.0 - 16.0 G/DL) 13.0 Hct (37 - 47 %) 38.3 MCV (81.0 - 99.0 FL) 92.2 MCH (27.0 - 31.0 PG) 31.3 H RDW (11.5 - 14.5 %) 14.6 H Plt Count (130 - 400 /CUMM) 272 MPV (7.4 - 10.4 FL) 7.2 L Gran % (42.2 - 75.2 %) 65.5 Lymphocytes % (20.5 - 51.1 %) 23.1 Monocytes % (1.7 - 9.3 %) 9.9 H Eosinophils % (0 - 5 %) 1.3 Basophils % (0.0 - 2.0 %) 0.2 Absolute Granulocytes (1.4 - 6.5 /CUMM) 4.5 Absolute Lymphocytes (1.2 - 3.4 /CUMM) 1.6 Absolute Monocytes (0.10 - 0.60 /CUMM) 0.7 H Absolute Eosinophils (0.0 - 0.7 /CUMM) 0.1 Absolute Basophils (0.0 - 0.2 /CUMM) 0 PUBS MCHC (33.0 - 37.0 G/DL) 34.0 Assessment/Plan Assessment/Plan 80-year-old woman with a past medical history of eye pretension, hyperlipidemia, gastroesophageal reflux disease and arachnoid hemorrhage. The patient presents with symptoms of chest discomfort as well as increasing dyspnea and episodes of syncope occurring over the past several weeks; however, have as well occurred in the past. Syncope: The overall presentation appears with vasovagal / neurocardiogenic etiology, and likely with recurrences of the same at times of respiratory tract infections/ dehydration. She is currently not orthostatic; however, received IV fluids during her events last PM. At this time, we will follow-up with an echocardiogram and recheck orthostatic blood pressures. As the telemetry demonstrated sinus bradycardia with in the 40s, a pacemaker implantation would not directly assist with neurocardiogenic syncope and would not be recommended at this point. If there is the prominence of severe bradycardia/asystole in the etiology of her syncope, this would be reconsidered. Hypertension: Given the presence of neurocardiogenic syncope and the possibility of orthostatic blood pressure changes, the pain may not be a favored agent. Echocardiographic data is obtained, we may consider changing this to an agent which is less likely to cause orthostatic changes such as a centrally acting alpha agent if necessary. Further recommendations we made based on review of the echocardiogram. Upper respiratory tract infection: Continue treatment as per the medical team. Thank you for allowing us to participate in the care of your patient. Please do not hesitate to contact us further with any questions. Sincerely, Cristobal Spears MD [facility] Consult Acknowledgment - Thank you for your consult request.
--- NOTE | 2016-06-10 14:13 | PN- Housestaff ---
[facility] 06/10/16 1346: Subjective Follow-up For: Syncope Hypertension bronchitis Complaints: shortness of breath, syncopal episode overnuight Tele-Events Since Last Visit: Patient was bradycardic to 42 at around midnight. Heart rate 52-81 Subjective: A rapid response was called at around 12:30AM with subsequent code 3 called moments later for unresponsiveness. The patient reported that she felt lightheaded while walking to the bathroom at night and collapsed. She was apneic for about 15-20 seconds. However when the house staff reach the patient's room she was back to her baseline after a brief unresponsiveness of a few seconds. Vitals were stable. EKG was unchanged. Complete blood count, serum chemistries, magnesium, and troponin drawn at this time were within normal limits. This morning patient continues to complain of shortness of breath. Denies any chest pain, palpitations, nausea, vomiting.Orthostatic status this morning were negative Review of Systems Constitutional: Reports: malaise, weakness. EENTM: Reports: no symptoms. Cardiovascular: Reports: no symptoms. Respiratory: Reports: cough, short of breath. Gastrointestinal: Reports: no symptoms. Genitourinary: Reports: no symptoms. Musculoskeletal: Reports: no symptoms. Skin: Reports: no symptoms. Objective Last 24 Hrs of Vital Signs/I&O Vital Signs Date Time Temp Pulse Resp B/P Pulse O2 O2 Flow FiO2 Ox Delivery Rate 06/10 1033 65 150/78 08 0808 98.3 65 20 150/78 97 Nasal 2.0L Cannula 06/10 0036 93 Nasal 2.0L Cannula 06/09 2145 98.5 92 20 162/86 98 Room Air 06/09 2049 96.7 79 16 142/82 95 Room Air 06/09 2048 96.7 80 16 142/82 95 Room Air 06/09 1511 98.4 79 16 159/76 100 Room Air 06/09 1506 98.4 85 16 159/76 100 Room Air 06/09 1408 70 170/82 Intake & Output 06/10 1600 08 0800 06/10 0000 Intake Total 900 850 Output Total 400 Balance 500 850 Intake, IV 650 500 Intake, Oral 250 350 Number 0 0 Bowel Movements Output, Urine 400 Physical Exam General Appearance: Alert, Oriented X3, Cooperative, Mild Distress Skin: No Rashes, No Breakdown HEENT: Atraumatic, PERRLA, EOMI Neck: Supple, No JVD Lymphatic: Cervical nl Cardiovascular: Regular Rate, Normal S1, pansystolic murmur at the left sternal border with transmission to carotids Lungs: bilateral rhonchi Abdomen: Normal Bowel Sounds, Soft, No Tenderness Neurological: Normal Speech, Strength at 5/5 X4 Ext, Normal Tone, Sensation Intact, Cranial Nerves 3-12 NL, Reflexes 2+ Extremities: No Clubbing, No Cyanosis, No Edema Vascular: Normal Pulses, Pulses Symmetrical Current Medications: Current Medications Sig/Ani Start time Last Medication Dose Route Stop Time Status Admin Acetaminophen 650 MG Q6 PRN 06/09 1300 AC PO Acetaminophen 1,000 MG Q6P PRN 06/09 1300 AC IV Amlodipine Besylate 0 .STK-MED ONE 06/09 1359 DC PO Amlodipine Besylate 5 MG QAM 06/09 1330 AC 06/10 PO 1033 Budesonide/ 1 PUF BID 06/09 1330 AC 06/10 Formoterol Fumarate INH 1033 Heparin Sodium 5,000 UNIT Q8 06/09 1400 AC 06/10 (Porcine) SC 1034 Heparin Sodium 0 .STK-MED ONE 06/09 1358 DC (Porcine) .ROUTE Omeprazole 40 MG 1700 06/10 1700 AC PO Omeprazole 0 .STK-MED ONE 06/09 1359 DC PO Omeprazole 40 MG DAILY AC 06/09 1331 DC 06/09 PO 1408 Ondansetron HCl 4 MG ONCE ONE 06/10 0115 DC 06/10 IV 06/10 0116 0133 Sodium Chloride 1,000 ML Q13H 06/09 1430 DC 06/09 IV 06/10 0329 1507 Vitamin E 100 IU DAILY 06/09 1331 AC 06/10 PO 1033 Last 24 Hrs of Lab/Rafal Results Last 24 Hrs of Labs/Mics: Laboratory Tests 06/10/16 0620: Anion Gap 6, Estimated GFR > 60, BUN/Creatinine Ratio 17.8, Magnesium 1.9, Troponin I < 0.01 06/10/16 0045: Anion Gap 8, Estimated GFR 54 L, BUN/Creatinine Ratio 17.0, Troponin I < 0.01 06/10/16 0045: Sodium Cancelled, Potassium Cancelled, Chloride Cancelled, Carbon Dioxide Cancelled, Anion Gap Cancelled, BUN Cancelled, Creatinine Cancelled, BUN/ Creatinine Ratio Cancelled, CBC w Diff NO MAN DIFF REQ, RBC 4.01 L, MCV 92.1, MCH 31.1 H, RDW 14.8 H, MPV 7.6, Gran % 58.6, Lymphocytes % 30.0, Monocytes % 9.2, Eosinophils % 1.8, Basophils % 0.4, Absolute Granulocytes 5.4, Absolute Lymphocytes 2.8, Absolute Monocytes 0.8 H, Absolute Eosinophils 0.2, Absolute Basophils 0, PUBS MCHC 33.8 06/09/16 2054: Troponin I < 0.01 06/09/16 1505: Troponin I < 0.01 Microbiology 06/09 1445 NASOPHARYN: Influenza Virus A & B Rapid Smear - COMP 06/09 1425 LOWER RESP: Respiratory Culture - COLB 06/09 1425 LOWER RESP: Gram Stain - COLB Assessment/Plan Assessment: 80-year-old female with a past medical history of subarachnoid hemorrhage, hypertension, hyperlipidemia, aspirin, GERD, diverticulitis, osteoarthritis presented to the ED with chief complaint of chest pain and shortness of breath as well as episodes of syncope that happened a week and a half ago. EKG revealed normal sinus rhythm, questionable left axis deviation, poor R-wave progression and a heart rate of 77. Chest x-ray revealed no evidence of pneumonia, pneumothorax or pleural effusion. Last echo 2007 revealed normal left ventricular ejection fraction, mild mitral regurgitation, mild tricuspid regurgitation, trace pulmonic valvular regurgitation and trace to mild aortic regurgitation. PLAN: #Syncope: The description of the episode are more likely neurocardiogenic/ vasovagal episodes more frequent during periods of infection and dehydration. An episode overnight at around 12:30 AM. -Continue to monitor on telemetry. Bradycardic episode overnight/we will watch closely -Orthostatics have been negative. We will repeat later in the day. -Echocardiogram pending -Carotid ultrasound to rule out stenosis -Cardiology following -Pacemaker indicated at this point as it would not be helpful if the neurocardiogenic syncope. If patient continues to have episodes of bradycardia/ asystole pacemaker might be a consideration. #Bronchitis/upper respiratory tract infection: Was treated recently with Z-Prosper and prednisone for cough with yellow phlegm. -Hydrated with IV fluids -Patient continues to cough, saturating 97% on 2 L nasal cannula -Rapid flu has been negative -Cultures pending -Continue Symbicort and try to taper the oxygen down #Atypical chest pain:Could be secondary to coughing due to her bronchitis/upper respiratory infection -ACS has been ruled out with negative troponins and EKGs -Rapid flu negative -Continue Tylenol for pain #Hypertension -Currently on amlodipine 5 mg daily, will consider starting centrally acting alpha-1 conner as per our cardiology recommendations due to her ?neurocardiac syncopal episodes #GERD Continue on Protonix 40 mg daily Diet Heart healthy DVT prophylaxis Heparin 5000 international units 3 times a day subcutaneous CODE STATUS Full code Problem List: 1. Syncope 2. Bronchitis with asthma, acute Pain Ratin Pain Location: chest Pain Goal: Remain pain free Pain Plan: IV Tylenol Tomorrow's Labs & Rationales: None require Consulting Request: Consulting Specialty: Cardiology JOSHUA JURADO MD 06/10/16 1414: Attending MD Review Statement Attending Statement Attending MD Statement: examined this patient, discuss w/resident/PA/COMPUTER ARTIST, agreed w/resident/PA/COMPUTER ARTIST, reviewed EMR data (avail), discussed with nursing, discussed with case mgmt, reviewed images Attending Assessment/Plan: Events overnight noted. Patient became bradycardic and had a syncopal event and subsequent code 3 was called because they couldn't feel a pulse or a blood pressure. We spoke at length with the overhead garage door hanger. 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 The echo is pending, carotid ultrasound is pending, telemetry monitoring will follow -up. At this point given her need for close follow-up and need to follow-up her heart rate closely she needs to be admitted and not watched in observation status. And will follow-up with cardiology.
[2016-06-10 16:48] VITALS: BP 141/80
--- NOTE | 2016-06-10 17:37 | ULTRASOUND REPORT ---
EXAMINATION: DUPLEX BILATERAL CAROTID ULTRASOUND CLINICAL INFORMATION: Syncope. COMPARISON: None available. TECHNIQUE: Real-time ultrasound and Doppler techniques (integrating B-mode 2D vascular images, Doppler spectral analysis and color flow Doppler imaging) were utilized to interrogate the extracranial carotid and vertebral arteries bilaterally. FINDINGS: Right side: 1. There is moderate hyperechoic plaque in the ECA/ICA region. 2. The common carotid artery velocity is 111 cm/s. 3. The proximal internal carotid artery velocities are 55 cm/s systolic and 8 cm/s diastolic. 4. The external carotid artery velocity is 111 cm/s. Left side: 1. There is moderate hyperechoic plaque in the ECA/ICA region. 2. The common carotid artery velocity is 90 cm/s. 3. The proximal internal carotid artery velocities are 65 cm/s systolic and 16 cm/s diastolic. 4. The external carotid artery velocity is 127 cm/s. ADDITIONAL FINDINGS: 1. The vertebral arteries show antegrade flow. IMPRESSION: 1. RIGHT: Minimal, nonhemodynamically significant stenosis of the proximal right internal carotid artery corresponding to a 0-49% stenosis by velocity criteria. 2. LEFT: Minimal, nonhemodynamically significant stenosis of the proximal left internal carotid artery corresponding to a 0-49% stenosis by velocity criteria. 3. Antegrade flow is seen via the bilateral vertebral arteries.
--- NOTE | 2016-06-10 18:39 | ECHOCARDIOGRAM REPORT ---
JOEL RUTLEDGE Age: 80 : 1935 Gender: F Exam Date: 06/10/2016 14:20 Exam Location: [place] Ht (in): 59 Wt (lb): 135 BSA: 1.62 BP: 150 / 78 Ordering Physician: TULIO DE LA ROSA MD Referring Physician: Cristobal Spears M.D. Technologist: Marietta Beasley [facility] Room Number: [id number] Indications: PRESYNCOPE/SYNCOPE Rhythm: Technical Quality: FINDINGS Left Ventricle Normal size left ventricle. Left ventricular wall thickness mildly increased. Normal left ventricular ejection fraction estimated at 60-65%. Right Ventricle Normal right ventricular size and function. Right Atrium Normal right atrial size. Left Atrium Left atrial size at the upper limits of normal. Mitral Valve Mild mitral annular calcification. Trace to mild mitral regurgitation. Aortic Valve Aortic valve not well visualized. Diffuse thickening of the aortic valve cusps with reduced excursion. Probably Moderate Aortic stenosis. Tricuspid Valve Tricuspid valve is normal in structure and function. Mild tricuspid regurgitation. Right ventricular systolic pressure estimated to be elevated at 34 mmHg. Pulmonic Valve Structurally normal pulmonic valve. Pericardium No pericardial effusion. Great Vessels Normal size aortic root. CONCLUSIONS Normal left ventricular systolic function with mild concentric hypertrophy. Possibly Moderate Aortic stenosis. Mild Pulmonary hypertension. Galen Lomas M.D. (Electronically Signed) Final Date: 10 June 2016 18:38 MEASUREMENTS (Male / Female) Normal Values 2D ECHO LV Diastolic Diameter PLAX 4.5 cm 4.2 - 5.9 / 3.9 - 5.3 cm LV Systolic Diameter PLAX 2.0 cm 2.1 - 4.0 cm LV Fractional Shortening PLAX 55.6 % 25 - 46 % LV Ejection Fraction 2D Teich 86.2 % IVS Diastolic Thickness 1.3 cm LVPW Diastolic Thickness 1.3 cm LV Relative Wall Thickness 0.6 RV Internal Dim ED PLAX 2.0 cm 1.9 - 3.8 cm LVOT Diameter 1.8 cm Aortic Root Diameter 2.9 cm LA Systolic Diameter LX 3.7 cm 3.0 - 4.0 / 2.7 - 3.8 cm LA Volume 30.0 cm 18 - 58 / 22 - 52 cm Ascending Aorta Diameter 3.4 cm DOPPLER AV Peak Velocity 271.0 cm/s AV Peak Gradient 29.4 mmHg AV Mean Velocity 194.0 cm/s AV Mean Gradient 17.0 mmHg AV Velocity Time Integral 57.4 cm LVOT Peak Velocity 104.0 cm/s LVOT Peak Gradient 4.3 mmHg LVOT Mean Velocity 67.0 cm/s LVOT Mean Gradient 2.0 mmHg LVOT Velocity Time Integral 22.0 cm LVOT Stroke Volume 56.0 cm AV Area Cont Eq vti 1.0 cm AV Area Cont Eq pk 1.0 cm MV Peak Velocity 137.0 cm/s MV Peak Gradient 7.5 mmHg MV Mean Velocity 77.1 cm/s MV Mean Gradient 3.0 mmHg Mitral E Point Velocity 97.2 cm/s Mitral A Point Velocity 128.0 cm/s Mitral E to A Ratio 0.8 MV PHT Velocity 123.0 cm/s MV Deceleration Routt 490.0 cm/s MV Pressure Half Time 75.3 ms MV Area PHT 2.9 cm MV Deceleration Time 304.0 ms TR Peak Velocity 271.0 cm/s TR Peak Gradient 29.4 mmHg Right Atrial Pressure 5.0 mmHg Pulmonary Artery Systolic Pressu 34.4 mmHg Right Ventricular Systolic Press 34.4 mmHg PV Peak Velocity 127.0 cm/s PV Peak Gradient 6.5 mmHg PV Mean Velocity 82.7 cm/s PV Mean Gradient 3.0 mmHg PV Velocity Time Integral 24.2 cm LV E' Lateral Velocity 5.7 cm/s Mitral E to LV E' Lateral Ratio 17.0 LV E' Septal Velocity 6.3 cm/s Mitral E to LV E' Septal Ratio 15.5
[2016-06-10 23:45] VITALS: BP 130/60
[2016-06-11 08:27] VITALS: BP 138/74
--- NOTE | 2016-06-11 08:49 | PN- Housestaff ---
[facility] 06/11/16 0837: Subjective Follow-up For: Syncope Hypertension bronchitis Complaints: Fells chest pain during coughing Tele-Events Since Last Visit: Normal sinus rhythm, 60-74 bpm Subjective: Patient feels much better today morning. Slept well . No more episodes of bradycardia overnight. Complains of nonspecific chest discomfort while coughing. Pain is reproducible on coughing. She is getting Tylenol for pain control. No episodes of dizziness/lightheadedness overnight. Continues to have moderate cough. Review of Systems Constitutional: Reports: malaise, weakness. EENTM: Reports: no symptoms. Cardiovascular: Reports: no symptoms. Respiratory: Reports: cough. Gastrointestinal: Reports: no symptoms. Genitourinary: Reports: no symptoms. Musculoskeletal: Reports: muscle pain. Skin: Reports: no symptoms. Neurological/Psychological: Reports: no symptoms. Objective Last 24 Hrs of Vital Signs/I&O Vital Signs Date Time Temp Pulse Resp B/P Pulse O2 O2 Flow FiO2 Ox Delivery Rate 06/11 0827 98.0 66 18 138/74 93 Room Air 06/11 0000 95 Nasal 2.0L Cannula 06/10 2345 98.0 64 20 130/60 97 Nasal Cannula 06/10 1723 Nasal 1.0L Cannula 06/10 1648 98.6 89 20 141/80 97 Nasal 1.0L Cannula 06/10 1600 Nasal 2.0L Cannula 06/10 1033 65 150/78 Intake & Output 06/11 1600 06/11 0800 06/11 0000 Intake Total 200 480 Output Total 350 2 Balance -150 478 Intake, Oral 200 480 Output, Other 2 Output, Urine 350 Physical Exam General Appearance: Alert, Oriented X3, Cooperative, No Acute Distress Skin: No Rashes, No Breakdown, No Significant Lesion HEENT: Atraumatic, PERRLA, EOMI Neck: Supple, No JVD Lymphatic: Cervical nl Cardiovascular: Regular Rate, Normal S1, Normal S2, 3/6 pansystolic murmur over the aortic area transmitting to the carotid.Another systolic 2/ 6 murmur heard over the right sternal border Lungs: bilateral rhonchi Abdomen: Normal Bowel Sounds, Soft, No Tenderness Neurological: Normal Speech, Normal Tone Extremities: No Clubbing, No Cyanosis, No Edema, Normal Pulses Vascular: Pulses Symmetrical Current Medications: Current Medications Sig/Ani Start time Last Medication Dose Route Stop Time Status Admin Acetaminophen 650 MG .STK-MED ONE 06/10 1804 DC PO 06/10 1805 Acetaminophen 650 MG Q6 PRN 06/09 1300 AC 06/11 PO 0711 Acetaminophen 1,000 MG Q6P PRN 06/09 1300 AC IV Albuterol Sulfate 3 ML Q4P PRN 06/10 2030 AC INH Amlodipine Besylate 5 MG QAM 06/09 1330 AC 06/10 PO 1033 Budesonide/ 1 PUF BID 06/09 1330 AC 06/10 Formoterol Fumarate INH 1033 Heparin Sodium 5,000 UNIT Q8 06/09 1400 AC 06/11 (Porcine) SC 0554 Influenza Virus 0.5 ML ONCE ONE 06/10 1700 DC Vaccine IM 06/10 1701 Omeprazole 40 MG 1700 06/10 1700 AC 06/10 PO 1807 Vitamin E 100 IU DAILY 06/09 1331 AC 06/10 PO 1033 Last 24 Hrs of Lab/Rafal Results Last 24 Hrs of Labs/Mics: f Assessment/Plan Assessment: 80-year-old female with a past medical history of subarachnoid hemorrhage, hypertension, hyperlipidemia, aspirin, GERD, diverticulitis, osteoarthritis presented to the ED with chief complaint of chest pain and shortness of breath as well as episodes of syncope that happened a week and a half ago. EKG revealed normal sinus rhythm, questionable left axis deviation, poor R-wave progression and a heart rate of 77. Chest x-ray revealed no evidence of pneumonia, pneumothorax or pleural effusion. Last echo 2007 revealed normal left ventricular ejection fraction, mild mitral regurgitation, mild tricuspid regurgitation, trace pulmonic valvular regurgitation and trace to mild aortic regurgitation. PLAN: #Syncope: The description of the episode are more likely neurocardiogenic syncope as patient has premonition of the coming event. No episodes of syncope overnight. -No events on the property assessment monitor. Patient's heart rate was maintained between 60-70 bpm -Orthostatics have been negative. Repeat orthostatics pending. -Echocardiogram shows EF of 60-65% with normal left ventricular function and mild concentric hypertrophy. Moderate aortic stenosis, mild pulmonary hypertension. -No hemodynamically significant stenosis seen on carotid ultrasound -Cardiology following -Pacemaker indicated at this point as it would not be helpful if the neurocardiogenic syncope. If patient continues to have episodes of bradycardia/ asystole pacemaker might be a consideration. #Bronchitis/upper respiratory tract infection: Was treated recently with Z-Prosper and prednisone for cough with yellow phlegm. -Hydrated with IV fluids -Patient continues to cough, saturating 97% on 2 L nasal cannula -Rapid flu has been negative -Cultures pending -Continue Symbicort and try to taper the oxygen down #Atypical chest pain:Could be secondary to coughing due to her bronchitis/upper respiratory infection -ACS has been ruled out with negative troponins and EKGs -Rapid flu negative -Continue Tylenol for pain #Hypertension stable -Currently on amlodipine 5 mg daily, will consider starting centrally acting alpha-1 conner as per our cardiology recommendations due to her ?neurocardiac syncopal episodes #GERD Continue on Protonix 40 mg daily Diet Heart healthy DVT prophylaxis Heparin 5000 international units 3 times a day subcutaneous CODE STATUS Full code Problem List: 1. Syncope 2. Chest pain 3. Bronchitis with asthma, acute Pain Ratin Pain Location: chest muscle Pain Goal: Pain 4 or less Pain Plan: IV Tylenol Tomorrow's Labs & Rationales: none Consulting Request: Consulting Specialty: Cardiology JOSHUA JURADO MD 06/11/16 1428: Attending MD Review Statement Attending Statement Attending MD Statement: examined this patient, discuss w/resident/PA/PATIENT COORDINATOR, agreed w/resident/PA/PATIENT COORDINATOR, reviewed EMR data (avail), discussed with nursing, discussed with case mgmt, reviewed images Attending Assessment/Plan: Pt saw the screen printing paster this morning and she's keen on going home. I explained to her at length the issues with bradycardia and the need for close outpatient follow-up with Dr. Galen Thornton's office with an echo and Holter. I also explained the compression stockings. I wanted to keep her here to have a residence hall director evaluate her given her cough and sputum. She is very adamant that she doesn't want to see a residence hall director here. She follows with her healthcare management consultant MD who has been treating her airway disease all her life and she would much rather follow-up with him. She is stable to be discharged in terms of her vital signs, no more bradycardic episodes, no more syncope with no documented orthostasis and an echocardiogram (mod ) and carotid ultrasound that essentially is normal. Dr. Galen Thornton is going to closely follow-up with outpatient testing and patient will leave with close outpatient follow-up.
--- NOTE | 2016-06-11 08:53 | PN- Cardiology ---
Subjective Subjective: Telemetry reviewed. Sinus rhythm rates between 50 and 70. No cardiac event overnight. Patient does complain of right-sided chest pain with tenderness and relates this to her recent fall. Objective Vital Signs and I&Os Vital Signs Date Time Temp Pulse Resp B/P Pulse O2 O2 Flow FiO2 Ox Delivery Rate 06/11 826 98.0 66 18 138/74 93 Room Air 06/11 0000 95 Nasal 2.0L Cannula 06/10 2345 98.0 64 20 130/60 97 Nasal Cannula 06/10 1723 Nasal 1.0L Cannula 06/10 1648 98.6 89 20 141/80 97 Nasal 1.0L Cannula 06/10 1600 Nasal 2.0L Cannula 06/10 1033 65 150/78 Intake & Output 06/11 0806/11 0000 06/10 1600 06/10 0806/10 0000 Intake Total 200 480 925 900 850 Output Total 350 2 915 400 Balance -150 478 10 500 850 Intake, IV 0 650 500 Intake, Oral 200 480 925 250 350 Number 0 0 0 Bowel Movements Output, Other 2 Output, Urine 350 915 400 Physical Exam: Gen. exam patient comfortable and communicative. Head normocephalic atraumatic Eyes sclera anicteric conjunctiva showed no pallor extraocular muscles were normal Neck no jugular venous distention no thyroid masses no palpable nodes Chest lungs were clear bilaterally Heart regular rhythm with a grade 2/6 systolic murmur Abdomen soft no organomegaly bowel sounds normal Extremities no clubbing cyanosis or pedal edema bilateral varicose veins noted. Neurological no gross motor or sensory deficits Current Medications: Current Medications Sig/Ani Start time Last Medication Dose Route Stop Time Status Admin Acetaminophen 650 MG .STK-MED ONE 06/10 1804 DC PO 06/10 1805 Acetaminophen 650 MG Q6 PRN 06/09 1300 AC 06/11 PO 0711 Acetaminophen 1,000 MG Q6P PRN 06/09 1300 AC IV Albuterol Sulfate 3 ML Q4P PRN 06/10 2030 AC INH Amlodipine Besylate 5 MG QAM 06/09 1330 AC 06/10 PO 1033 Budesonide/ 1 PUF BID 06/09 1330 AC 06/10 Formoterol Fumarate INH 1033 Heparin Sodium 5,000 UNIT Q8 06/09 1400 AC 06/11 (Porcine) SC 0554 Influenza Virus 0.5 ML ONCE ONE 06/10 1699 DC Vaccine IM 06/10 170 Omeprazole 40 MG 1700 06/10 170 AC 06/10 PO 1807 Vitamin E 100 IU DAILY 06/09 1331 AC 06/10 PO 1033 Results Last 48 Hrs of Labs/Mics: Laboratory Tests 06/10/16 0620: Anion Gap 6, Estimated GFR > 60, BUN/Creatinine Ratio 17.8, Magnesium 1.9, Troponin I < 0.01 06/10/16 0045: Anion Gap 8, Estimated GFR 54 L, BUN/Creatinine Ratio 17.0, Troponin I < 0.01 06/10/16 0045: Sodium Cancelled, Potassium Cancelled, Chloride Cancelled, Carbon Dioxide Cancelled, Anion Gap Cancelled, BUN Cancelled, Creatinine Cancelled, BUN/ Creatinine Ratio Cancelled, CBC w Diff NO MAN DIFF REQ, RBC 4.01 L, MCV 92.1, MCH 31.1 H, RDW 14.8 H, MPV 7.6, Gran % 58.6, Lymphocytes % 30.0, Monocytes % 9.2, Eosinophils % 1.8, Basophils % 0.4, Absolute Granulocytes 5.4, Absolute Lymphocytes 2.8, Absolute Monocytes 0.8 H, Absolute Eosinophils 0.2, Absolute Basophils 0, PUBS MCHC 33.8 06/09/16 2054: Troponin I < 0.01 06/09/16 1505: Troponin I < 0.01 06/09/16 1301: Troponin I Cancelled 06/09/16 0940: Anion Gap 6, Estimated GFR > 60, BUN/Creatinine Ratio 25.6 H, Glucose 98, Calcium 10.1, Total Bilirubin 0.6, AST 18, ALT 22, Alkaline Phosphatase 112, Troponin I < 0.01, Total Protein 6.5, Albumin 3.6, Globulin 2.9, Albumin/ Globulin Ratio 1.2, TSH 1.060, CBC w Diff NO MAN DIFF REQ, RBC 4.15 L, MCV 92.2 , MCH 31.3 H, RDW 14.6 H, MPV 7.2 L, Gran % 65.5, Lymphocytes % 23.1, Monocytes % 9.9 H, Eosinophils % 1.3, Basophils % 0.2, Absolute Granulocytes 4.5, Absolute Lymphocytes 1.6, Absolute Monocytes 0.7 H, Absolute Eosinophils 0.1, Absolute Basophils 0, PUBS [facility] 34.0 Microbiology 06/09 1445 NASOPHARYN: Influenza Virus A & B Rapid Smear - COMP Recent Imaging Studies: Echocardiogram revealed somewhat poor image quality. Aortic valve was not well seen but Doppler gradient has been detected. Normal left ventricular systolic function with mild concentric hypertrophy. Possibly Moderate Aortic stenosis. Mild Pulmonary hypertension. Carotid ultrasound revealedIMPRESSION: 1. RIGHT: Minimal, nonhemodynamically significant stenosis of the proximal right internal carotid artery corresponding to a 0-49% stenosis by velocity criteria. 2. LEFT: Minimal, nonhemodynamically significant stenosis of the proximal left internal carotid artery corresponding to a 0-49% stenosis by velocity criteria. 3. Antegrade flow is seen via the bilateral vertebral arteries. Assessment/Plan Assessment/Plan In summary this 80-year-old female has been admitted with the following problems #1. Recurrent syncope. The clinical features of this is highly suggestive of neurocardiogenic syncope. She has a premonition, sometimes his occurs in clusters, in the past to have occurred precipitated by vomiting diarrhea. Patient also has Mnire's disease, and some vestibular dysfunction. I have suggested that she keep herself well-hydrated, avoid standing for long periods of time, wear elastic compression stockings every day, and I taught her some isometric exercises to prevent the syncope after recognizing premonition symptoms. #2 hypertension #3 aortic stenosis. Her aortic valve wasn't well visualized, but appear to open adequately. However some somewhat surprised that a Doppler gradient. At the most her aortic stenosis is probably moderate in we can recheck this as an outpatient. She would need a Holter monitor recording and her echocardiogram repeated as an outpatient. Have suggested she that we apply compression stockings to her, ambulator give her analgesics for a right-sided chest pain which appears to be musculoskeletal related to her fall. She could be discharged today. Continue telemetry? No
[2016-06-11 09:33] VITALS: BP 138/74
--- NOTE | 2016-06-11 09:51 | Patient Discharge Instructions ---
Discharge Instructions General Discharge Information You were seen/treated for: Syncope Hypertension bronchitis Special Instructions: 1. Please follow up with Dr. Galen Lomas within 2 weeks of discharge for Holter and follow up ECHO. 2.Please follow up with your PCP within 1 week of discharge. 3. Please follow up with your allergy doctor for the bronchitis. 4. Please keep yourself hydrated, avoid standing long periods of time and wear the compression stockings all the time. Diet Continue normal diet: No Recommended Diet: Heart Healthy Activity Full Activity/No Limits: Yes (as tolerated) Acute Coronary Syndrome Inclusion Criteria At DC or during hospital stay patient has or had the following: ACS DIAGNOSIS No Discharge Core Measures Meds if any: Prescribed or Continued at Discharge Meds if any: NOT Prescribed or Continued at Discharge Congestive Heart Failure Inclusion Criteria At DC or during hospital stay patient has or had the following: CHF DIAGNOSIS No Discharge Core Measures Meds if any: Prescribed or Continued at Discharge Meds if any: NOT Prescribed or Continued at Discharge Cerebrovascular accident Inclusion Criteria At DC or during hospital stay patient has or had the following: CVA/TIA Diagnosis No Discharge Core Measures Meds if any: Prescribed or Continued at Discharge Meds if any: NOT Prescribed or Continued at Discharge Venous thromboembolism Inclusion Criteria VTE Diagnosis No VTE Type NONE VTE Confirmed by (Test) NONE Discharge Core Measures - Per Current guidelines, there needs to be overlap - treatment for the first 5 days of Warfarin therapy. - If discharged on Warfarin prior to 5 days of - overlap therapy, the patient will need to be - assessed for post discharge needs including - *Post discharge parental anticoagulation - *Warfarin and/or parental anticoagulation education - *Follow up date to check INR post discharge At least 5 days overlap therapy as Inpatient No Meds if any: Prescribed or Continued at Discharge Note: Overlap Therapy is Warfarin and Anticoagulant Meds if any: NOT Prescribed or Continued at Discharge
--- NOTE | 2016-06-11 16:28 | Discharge Summary ---
Visit Information Visit Dates Admission Date: 06/10/16 Discharge Date: 06/11/16 Hospital Course Course Attending Physician: JOSHUA LOMAS MD Primary Care Physician: GWEN MARTIN MD Consulting Request: Consulting Specialty: Cardiology Hospital Course: 80-year-old female with a past medical history of subarachnoid hemorrhage, hypertension, hyperlipidemia, aspirin, GERD, diverticulitis, osteoarthritis presented to the ED with chief complaint of chest pain and shortness of breath as well as episodes of syncope over the past few weeks. At admission, EKG revealed normal sinus rhythm, questionable left axis deviation, poor R-wave progression and a heart rate of 77. Chest x-ray revealed no evidence of pneumonia, pneumothorax or pleural effusion. Problems: #Syncope: The description of the episodes are more likely neurocardiogenic more frequent during periods of infection and dehydration.The patient was admitted to the telemetry mattress floor for close monitoring. She was monitored with frequent neuro checks. She had an episode of syncope in the hospital when she she felt lightheaded while walking to the bathroom at night and collapsed. She was found to be pulseless for a few seconds a CODE 3 was called. However when the house staff reached the patient's room she was back to her baseline after a brief period of unresponsiveness of a few seconds. Vitals were stable. EKG was unchanged. Complete blood count, serum chemistries, magnesium, and troponin drawn at this time were within normal limits. She was closely monitored on telemetry. No more bradycardic episodes on the monitor. Cardiology followed the patient during the hospital stay and did not feel the need of a pacemaker given the episodes were neurocardiogenic in origin. Carotid ultrasound for negative for any hemodynamically significant stenosis. Echocardiogram showed moderate aortic stenosis with normal left ventricular wall. She was stable with good vital signs, normal bradycardic episodes, negative orthostatics. Patient felt clinically better was keen to go home and follow up with her mannequin mounter as an outpatient. She was given instructions to follow up with Dr. Dwayne Thornton within 2 weeks of discharge for a Holter monitor. She was also advised to keep herself hydrated, avoid standing long periods of time and wear the compression stockings all the time #Bronchitis/upper respiratory tract infection: patient was treated recently with Z-Prosper and prednisone for cough with yellow phlegmas an outpatient. She was hydrated with IV fluid and Continued on nasal cannula to maintain saturations above 97%. She was put on TRC nebs and Symbicort.Rapid flu was negative.we wanted to have her evaluated by a firer diesel locomotive for her cough and sputum however the patient was adamant and did not want to see a firer diesel locomotive in the hospital. She wanted to follow up with her allergy Dr. as an outpatient. #Atypical chest pain: Was likely musculoskeletal secondary to coughing due to her bronchitis/upper respiratory infection. ACS has been ruled out with negative troponins and EKGs.IV Tylenol for was continued for pain. #Hypertension stable: Was stable on amlodipine 5 mg. Plan was to start considering a centrally acting alpha-1 conner if neurocardiogenic episodes continued. However she had no more episodes in the hospital. #GERD:Continued on Protonix 40 mg daily Diet Heart healthy DVT prophylaxis Heparin 5000 international units 3 times a day subcutaneous CODE STATUS Full code Complications: She had an episode of syncope in the hospital when the patient felt lightheaded while walking to the bathroom at night and collapsed. She was found to be pulseless for a few seconds a CODE 3 was called. However when the house staff reached the patient's room she was back to her baseline after a brief period of unresponsiveness of a few seconds. Vitals were stable. EKG was unchanged. Complete blood count, serum chemistries, magnesium, and troponin drawn at this time were within normal limits. Allergies: Coded Allergies: codeine (SOB 06/09/16) Uncoded Allergies: SEASONAL (UNKNOWN 10/08/15) Disposition Summary Disposition Principal Diagnosis: Syncope Additional Diagnosis: Bronchitis/upper respiratory tract infection Discharge Disposition: home health services Discharge Instructions General Discharge Information Code Status: Full Code Patient's Diet: Heart Healthy Patient's Activity: as tolerated Follow-Up Instructions/Appts: 1. Please follow up with Dr. Dwayne Lomas within 2 weeks of discharge for Holter and follow up ECHO. 2.Please follow up with your PCP within 1 week of discharge. 3. Please follow up with your allergy doctor for the bronchitis. 4. Please keep yourself hydrated, avoid standing long periods of time and wear the compression stockings all the time. Medications at Discharge Discharge Medications: Continue taking these medications: Ranitidine (Ranitidine HCl) 150 MG TABLET 1 Tablet ORAL Every night Qty = 60 Comments: GIVEN REPLACEMENT IN HOSPITAL Last Taken: 06/10 Time: 5PM Budesonide/Formoterol Fumarate (Symbicort 160-4.5 Mcg Inhaler) 160 MCG-4.5 MCG/ ACTUATION HFA.AER.AD 1 Puff Inhale through mouth TWICE DAILY Qty = 10 Comments: Last Taken: 06/11 Time: 930AM Albuterol Sulfate (Proair Hfa) 90 MCG HFA.AER.AD 1-2 Puff Inhale through mouth Q4H as needed for ASTHMA Qty = 9 Comments: NOT GIVEN IN HOSPTIAL Amlodipine Besylate (Amlodipine Besylate) 5 MG TABLET 1 Tablet ORAL Every Morning Qty = 90 Comments: Last Taken: 06/11 Time: 930AM Acetaminophen (Tylenol Extra Strength) 500 MG TABLET 2 Tablet ORAL EVERY SIX HOURS as needed for PAIN Days = 7 Comments: Last Taken: 06/11 Time: 7AM Vitamin E Mixed (Vitamin E) 100 UNIT TABLET 1,000 Units ORAL DAILY Comments: Last Taken: 06/11 Time: 930AM Calcium Carbonate/Vitamin D3 (Caltrate 600 + D Tablet) 600 MG-800 TABLET 1 Tablet ORAL DAILY Comments: NOT GIVEN IN HOSPITAL Copies To: RHIANNON BOYLE,DWAYNE Herron; RHIANNON BOYLE,JOSHUA LOMAS MD,JOSHUA Gan
== END 2016-06-11 13:11 | DRG 312 ==
LOC: ENRESERVTM → ENRESERVDT → ERH 09:24 → 1NO 12:31 → ERHI 12:31 → 1NO 21:27 → ENPENDDIS 06-10 10:45 → 1NO 06-10 11:21
PROVIDERS: Internal Medicine Infectious Disease; Physician Assistant Medical; ADMIT Internal Medicine
DX: R55 Syncope and collapse (principal); E86.0 Dehydration; I10 Essential (primary) hypertension; J06.9 Acute upper respiratory infection, unspecified; E78.5 Hyperlipidemia, unspecified; K21.9 Gastro-esophageal reflux disease without esophagitis; Z87.891 Personal history of nicotine dependence
CPT/HCPCS: 1NSP; 36415; 82436; 87070; 87804; 87804-59; 90662; 93005; 93010; 93306; 96360; 96361; J0131; J1644; J2405; J3490